=== PATIENT | female | born 1965 | race Caucasian/White ===

== ENCOUNTER 2016-05-29 09:54 | Emergency (ER) | payer OTHER ==
[2016-05-29] MEDS ORDERED: Ondansetron INJ* 2 MG/ML VIAL IV ONE (10:33)
[2016-05-29] MEDS ORDERED: Ketorolac INJ* 30 MG/ML 1 ML VIAL IV ONE (10:33)
[2016-05-29] MEDS ORDERED: LORazepam INJ* 2 MG/ML 1 ML VIAL IV ONE (10:33)
[2016-05-29] MEDS ORDERED: cloNIDine TAB* 0.1 MG PO ONE (10:34)
[2016-05-29] MEDS ORDERED: NS 0.9% 1000 ML* 1,000 ML IV ONE (10:34)
[2016-05-29 11:02] LABS: Hematocrit 41 % (35-47); Hemoglobin 13.5 g/dl (12.0-16.0); Mean Corpuscular HGB Conc 33 g/dl (31-36); Mean Corpuscular Hemoglobin 30 pg (27-31); Mean Corpuscular Volume 91 fL (80-97); Mean Platelet Volume 8 um3 (7.4-10.4); Red Blood Count 4.44 10^6/ul (4.0-5.4); Red Cell Distribution Width 14 % (10.5-15); White Blood Count 13.7 10^3/ul (3.5-10.8)
[2016-05-29 11:21] LABS: Albumin 2.9 g/dL (3.2-5.2); BUN/Creatinine Ratio 12.1 (8-20); EGFR Non-African American 109.6 (>60); Globulin 2.1 g/dL (2-4); Potassium 2.8 mmol/L (3.5-5.0); Total Bilirubin 0.4 mg/dL (0.2-1.0)
[2016-05-29] MEDS ORDERED: KCL 20 MEQ/100 ML IVPREMIX* 20 MEQ/100 ML BAG IV ONE (11:45)
[2016-05-29 12:41] VITALS: BP 111/87
--- NOTE | 2016-05-29 15:00 | ED ---
abebe Alfonso Timothy, scribed for Bismark Mane MD on 05/29/16 at 1025 . Complex/Multi-Sys Presentation - HPI Summary HPI Summary: Hafsa Bowen is a 50 yo female presenting to [facility] with SOB and body aches since 0900 today. 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 She took a dose at 0800 today, but by the time she arrived at work at 0900 she was suffering from muscle spasms in her leg, blurred vision, CP, MCKEON, and chills with diarrhea. She last used heroin 3 days ago. Her Hx includes bronchitis, left kidney stones, shingles, tobacco use, and heroin use. - History Of Current Complaint Time Seen by Provider: 05/29/16 10:27 Hx Obtained From: Patient Onset/Duration: Sudden Onset, Lasting Hours, Still Present Timing: Constant Severity Currently: Moderate Severity Initially: Moderate Associated Signs And Symptoms: Positive: Diarrhea, Other - muscle spasms - Allergies/Home Medications Allergies/Adverse Reactions: Allergies Allergy/AdvReac Type Severity Reaction Status Date / Time No Known Allergies Allergy Verified 01/22/16 17:05 PMH/Surg Hx/FS Hx/Imm Hx Endocrine/Hematology History: Denies: Hx Diabetes, Hx Systemic Lupus Erythematosus Cardiovascular History: Denies: Hx Congestive Heart Failure, Hx Hypertension History: Reports: Other Problems/Disorders - hx of kidney stones (Left kidney) 2003 Denies: Hx Dialysis, Hx Renal Disease Musculoskeletal History: Denies: Hx Rheumatoid Arthritis, Other Musculoskeletal History - Cancer History Hx Chemotherapy: No - Surgical History Surgery Procedure, Year, and Place: tubal 21 years ago; tonsillectomy @ age 7 yrs; Infectious Disease History: Reports: Hx Shingles Denies: History Other Infectious Disease, Traveled Outside the [place] in Last 30 Days - Family History Known Family History: Positive: Other Negative: Cardiac Disease Family History: no known cardio vascular issues in family lineage - Social History Alcohol Use: Occasionally Substance Use Type: Reports: Heroin Substance Use Comment - Amount & Last Used: 3 days ago Hx Tobacco Use: Yes Smoking Status (MU): Heavy Every Day Tobacco Smoker Type: Cigarettes Amount Used/How Often: 1/4 PPD Have You Smoked in the Last Year: Yes Review of Systems Positive: Chills Positive: Blurred Vision ENT: Negative Positive: Chest Pain Respiratory: Negative Positive: Diarrhea Genitourinary: Negative Positive: Other - muscle spasms in legs Skin: Negative Positive: Headache Psychological: Normal All Other Systems Reviewed And Are Negative: Yes Physical Exam Triage Information Reviewed: Yes Vital Signs On Initial Exam: Initial Vitals Temp Pulse Resp BP Pulse Ox 98.7 F 109 24 127/62 97 05/29/16 10:12 05/29/16 10:12 05/29/16 10:12 05/29/16 10:12 05/29/16 10:12 Vital Signs Reviewed: Yes Appearance: Positive: Well-Appearing, No Pain Distress, Well-Nourished Skin: Positive: Warm, Skin Color Reflects Adequate Perfusion, Diaphoretic Head/Face: Positive: Normal Head/Face Inspection Eyes: Positive: Normal ENT: Positive: Normal ENT inspection Neck: Positive: Supple, Nontender Respiratory/Lung Sounds: Positive: Clear to Auscultation, Breath Sounds Present Cardiovascular: Positive: Tachycardia Abdomen Description: Positive: Nontender, Soft Bowel Sounds: Positive: Present Musculoskeletal: Positive: Normal Neurological: Positive: Normal Psychiatric: Positive: Normal Diagnostics - Vital Signs Vital Signs Temp Pulse Resp BP Pulse Ox 05/29/16 10:12 98.7 F 109 24 127/62 97 - Laboratory Lab Results: Lab Results 05/29/16 05/29/16 Range/Units 10:50 10:50 WBC 13.7 H (3.5-10.8) 10^3/ul RBC 4.44 (4.0-5.4) 10^6/ul Hgb 13.5 (12.0-16.0) g/dl Hct 41 (35-47) % MCV 91 (80-97) fL MCH 30 (27-31) pg MCHC 33 (31-36) g/dl RDW 14 (10.5-15) % Plt Count 283 (150-450) 10^3/ul MPV 8 (7.4-10.4) um3 Neut % (Auto) 78.4 (38-83) % Lymph % (Auto) 9.6 L (25-47) % Jackson % (Auto) 10.0 H (1-9) % Eos % (Auto) 1.2 (0-6) % Baso % (Auto) 0.8 (0-2) % Absolute Neuts (auto) 10.7 H (1.5-7.7) 10^3/ul Absolute Lymphs (auto) 1.3 (1.0-4.8) 10^3/ul Absolute Monos (auto) 1.4 H (0-0.8) 10^3/ul Absolute Eos (auto) 0.2 (0-0.6) 10^3/ul Absolute Basos (auto) 0.1 (0-0.2) 10^3/ul Absolute Nucleated RBC 0.01 10^3/ul Nucleated RBC % 0.1 Sodium 138 (133-145) mmol/L Potassium 2.8 L (3.5-5.0) mmol/L Chloride 114 H (101-111) mmol/L Carbon Dioxide 21 L (22-32) mmol/L Anion Gap 3 (2-11) mmol/L BUN 7 (6-24) mg/dL Creatinine 0.58 (0.51-0.95) mg/dL Est GFR ( Amer) 141.0 (>60) Est GFR (Non-Af Amer) 109.6 (>60) BUN/Creatinine Ratio 12.1 (8-20) Glucose 87 (70-100) mg/dL Calcium 7.0 L (8.6-10.3) mg/dL Total Bilirubin 0.40 (0.2-1.0) mg/dL AST 12 L (13-39) U/L ALT 8 (7-52) U/L Alkaline Phosphatase 51 (34-104) U/L Total Protein 5.0 L (6.4-8.9) g/dL Albumin 2.9 L (3.2-5.2) g/dL Globulin 2.1 (2-4) g/dL Albumin/Globulin Ratio 1.4 (1-3) Result Diagrams: 05/29/16 10:50 05/29/16 10:50 Lab Statement: Any lab studies that have been ordered have been reviewed, and results considered in the medical decision making process. Re-Evaluation - Re-Evaluation First Eval Re-Evaluation Time: 13:11 Change: Improved Comment: Pt condition has improved. Complex Multi-Symp Course/Dx Assessment/Plan: Hafsa Bowen is a 50 yo female presenting to [facility] with SOB and body aches after ingesting Subutex to help with her heroin withdrawal. I felt tht the Subutex was inadequately managing her symptoms and treated her with Ativan and Clonidine with good effect. After clinical analysis and review of her lab work, she will be discharged with heroin withdrawal and appropriate instructions and Rx. - Diagnoses Provider Diagnoses: Heroin withdrawal Discharge - Discharge Plan Condition: Stable Disposition: HOME Prescriptions: LORazepam TAB(*) [Ativan TAB(*)] 1 mg PO Q6H PRN #20 tab MDD 4 PRN Reason: Agitation cloNIDine TAB* [Catapres TAB*] 0.1 mg PO DAILY #5 tab Patient Education Materials: Opioid Withdrawal (ED) Referrals: Vikki Nelson MD [Primary Care Provider] - 2 Days Additional Instructions: Please follow up with your primary care physician regarding your visit to the emergency department. Take Ibuprofen as necessary for pain management. Return to the emergency department with any new or recurring symptoms. The documentation as recorded by the abebe shankar Timothy accurately reflects the service I personally performed and the decisions made by me, Bismark Mane MD.
== END 2016-05-29 14:14 | disposition home or self-care (01) ==
LOC: ED 09:54
DX: F11.23 Opioid dependence with withdrawal (principal); F17.210 Nicotine dependence, cigarettes, uncomplicated
CPT/HCPCS: 36415; 80053; 85025; 96360; 96374; 96375; 99283; A9270-GY; J1885; J2060; J2405; J3480

== ENCOUNTER 2017-09-01 00:11 | Emergency (ER) | payer MEDICAID ==
[2017-09-01 00:21] VITALS: BP 138/77
== END 2017-09-01 01:05 | disposition left against medical advice (07) ==
LOC: ED 00:11
DX: R11.0 Nausea (principal); Z53.21 Procedure and treatment not carried out due to patient leaving prior to being seen by health care provider

== ENCOUNTER → 2018-10-02 08:14 | Day surgery (SDC) | payer OTHER ==
[~2018-10-02 08:14] MED LIST: Acetaminophen TAB* 325 MG PO PRN; Diazepam TAB(*) 5 MG ONE; Heparin 2 UNITS/ML IVPREMIX* 3,000 UNIT/1,500 ML BAG IV ONE; Heparin(*) 1000 UNIT/ML 10 ML VIAL CATH LAB IV ONE; Iohexol 350 (CONTRAST) 200 ML MDV IV ONE; Lidocaine 1% INJ* 10 MG/ML 30 ML SDV ONE; Midazolam* 1 MG/ML 5 ML VIAL (5 MG) ONE; NS 0.9% 1000 ML** 1,000 ML IV SCH; VERAPAMIL 2.5 MG/ML 2 ML VIAL ** 5 mg/2 ml ONE; fentaNYL* 50 MCG/ML 2 ML VIAL (100 MCG VIAL) ONE; nitroGLYCERIN DRIP* 25,000 MCG/250 ML BTL ONE
[2018-10-02 11:11] VITALS: BP 116/72
--- NOTE | 2018-10-02 18:01 | CATH ---
CC: Dr. Chandana Gagnon CARDIAC CATHETERIZATION REPORT: DATE OF PROCEDURE: 10/02/18 PROCEDURE: Cardiac catheterization including coronary angiography. INDICATION: Cardiomyopathy, chest pain, shortness of breath. The patient is a 53-year-old female, who has been evaluated by Dr. Gagnon. The patient did undergo a chemical stress test, which showed no evidence of abnormal perfusion; however, she did have mildly t o moderately reduced LV systolic function, ejection fraction of 40%. The patient is having symptoms of chest pain and shortness of breath. Cardiac catheterization was recommended. DESCRIPTION OF PROCEDURE: The patient was brought to the procedure room in a fasting state. Informe d consent had been obtained prior to the procedure. All labs had been reviewed. The patient was mera geoffrey supine on the catheterization table. Her right radial area was prepped and draped in usual fashi on. 1% lidocaine was used for local anesthesia. The radial artery was entered by a Seldinger techni que and a guidewire was placed. Over the guidewire, a [place] hydrophilic sheath was placed. Throu gh the sheath, an infusion of heparin, nitroglycerin, and verapamil was given. The patient underwent cardiac catheterization using a [place] TIG catheter and [place] AR1 catheter. At the end of the procedure, all sheaths and catheters were removed. The patient tolerated the procedure well and no c omplications. A total of 25 cc of Omnipaque dye was used. A total of 4.9 minutes of fluoro time was used. FINDINGS: 1. Left main artery: The left main was normal in size. It bifurcated into the LAD and circumflex. It was a very short left main. There was no evidence of stenosis. 2. Left anterior descending artery: The LAD was normal in size. It gave off 1 diagonal vessel. Th ere was no evidence of stenosis. 3. Left circumflex artery: The circumflex artery was a large vessel. It gave off 3 obtuse marginal branches and a PDA. There was no evidence of stenosis. 4. Right coronary artery: The RCA was a small nondominant vessel. No evidence of stenosis. IMPRESS ION: Normal coronary arteries. RECOMMENDATIONS: The patient will be seen in followup for maximization of medical therapy. [id number]/[facility] #: [id number]
== END | disposition home or self-care (01) ==
LOC: CHICATH 08:14
PROVIDERS: ATTEND Specialist
DX: I50.22 Chronic systolic (congestive) heart failure (principal); R07.9 Chest pain, unspecified; I44.7 Left bundle-branch block, unspecified; R06.02 Shortness of breath; M19.90 Unspecified osteoarthritis, unspecified site; F32.9 Major depressive disorder, single episode, unspecified; F41.9 Anxiety disorder, unspecified; F17.210 Nicotine dependence, cigarettes, uncomplicated; Z87.09 Personal history of other diseases of the respiratory system
CPT/HCPCS: 93454; 99156; A9270-GY; J1644; J2250; J3010

== ENCOUNTER 2019-02-06 16:53 | Emergency (ER) | payer MEDICAID, OTHER ==
[2019-02-06 17:34] VITALS: BP 124/72
--- NOTE | 2019-02-06 18:16 | UC ---
Knee Pain HPI - HPI Summary HPI Summary: Patient is a 53-year-old female presenting with left anterior knee pain that she states she woke up with 2 weeks ago. States it is "worse than childbirth." Denies any injury or trauma. Notes radiating pain through lateral left thigh and into the buttock. Describes pain as sharp and shooting. Any kind of movement makes the pain worse, including ambulating. Denies numbness and tingling. Swelling and bruising. Has taken ibuprofen and iced without relief. - History of Current Complaint Chief Complaint: UCLowerExtremity Stated Complaint: L HIP/KNEE PAIN Hx Obtained From: Patient Hx Last Menstrual Period: 11/28 due to starting menopause Onset/Duration: Sudden Onset Severity Currently: Severe Pain Intensity: 8 Pain Scale Used: 0-10 Numeric - Allergies/Home Medications Allergies/Adverse Reactions: Allergies Allergy/AdvReac Type Severity Reaction Status Date / Time No Known Allergies Allergy Verified 02/06/19 17:35 Home Medications: Home Medications Ibuprofen TAB* [Advil TAB*] 400 mg PO PRN 02/06/19 [History] PMH/Surg Hx/FS Hx/Imm Hx - Surgical History Surgical History: Yes Surgery Procedure, Year, and Place: tubal, tonsillectomy @ age 7 yrs, heart cath - Family History Known Family History: Positive: Other Negative: Cardiac Disease Family History: no known cardio vascular issues in family lineage - Social History Alcohol Use: Rare Alcohol Amount: 1 glass of wine Substance Use Type: None Substance Use Comment - Amount & Last Used: 3 days ago Smoking Status (MU): Current Every Day Smoker Type: Cigarettes Amount Used/How Often: 5-7 cig/day Length of Time of Smoking/Using Tobacco: 40 years Have You Smoked in the Last Year: Yes Household Exposure Type: Cigarettes Review of Systems All Other Systems Reviewed And Are Negative: Yes Constitutional: Positive: Negative Respiratory: Positive: Negative Cardiovascular: Positive: Negative Gastrointestinal: Positive: Negative Musculoskeletal: Positive: Arthralgia. Negative: Calf Tenderness, Decreased ROM , Edema, Myalgia Neurological: Negative: Weakness, Paresthesia, Numbness Physical Exam Triage Information Reviewed: Yes Appearance: Well-Appearing, No Pain Distress, Well-Nourished Vital Signs: Initial Vital Signs Temp 97.9 F 02/06/19 17:30 Pulse 96 02/06/19 17:30 Resp 16 02/06/19 17:30 BP 124/72 02/06/19 17:30 Pulse Ox 99 02/06/19 17:30 Vital Signs Reviewed: Yes Eyes: Positive: Conjunctiva Clear ENT: Positive: Hearing grossly normal Neck: Positive: Supple Respiratory: Positive: No respiratory distress Cardiovascular: Positive: Pulses Normal, Brisk Capillary Refill Musculoskeletal: Positive: Strength Intact, ROM Intact, No Edema, Other: - mild tenderness to palpation of the anterior knee Neurological: Positive: Alert Psychological: Positive: Age Appropriate Behavior Skin Exam: Normal - no erythema or ecchymosis Knee Pain Course/Dx - Course Course Of Treatment: Discussed negative x-rays with patient and that official report will be obtained tomorrow she'll be notified of any abnormalities. It did hurt to continue symptomatic treatment. Directed her to follow-up with PCP if symptoms persist. Patient voiced understanding and agreed with the treatment plan. - Differential Dx/Diagnosis Provider Diagnosis: Left anterior knee pain Discharge ED - Sign-Out/Discharge Documenting (check all that apply): Patient Departure All imaging exams completed and their final reports reviewed: No - Discharge Plan Condition: Stable Disposition: HOME Patient Education Materials: Knee Pain (ED) Referrals: Vicky Schmitt MD [Primary Care Provider] - If Needed Sherice White MD [Medical Doctor] - If Needed Additional Instructions: Your xrays were read by the provider who treated you tonight. The xrays were read as normal. The official report will be obtained in the morning and you will be notified with any abnormal results. Continue to rest, ice, elevate, and apply compression with an ollie wrap to help relieve knee pain. You may also use over the counter pain medications as directed for relief of pain. If pain does not resolve, follow up with your PCP or orthopedics as listed below. Return or go to the emergency room if pain worsens, the foot becomes cold and numb, or you are not able to bear weight. - Billing Disposition and Condition Condition: STABLE Disposition: Home
== END 2019-02-06 19:06 | disposition home or self-care (01) ==
LOC: UCEAST 16:53
DX: M25.562 Pain in left knee (principal); F17.210 Nicotine dependence, cigarettes, uncomplicated
CPT/HCPCS: 99211; G0463